=== PATIENT | male | born 1990 | race Caucasian/White ===

== ENCOUNTER 2017-01-14 16:55 | Emergency (ER) | payer SELFPAY ==
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
[~2017-01-14 16:55] MED LIST: PROPRANOLOL; VIBRAMYCIN100 M1 PO; ZOMIG ZMT5 MG/TAB; ZYRTEC
== END 2017-01-14 19:35 | disposition home or self-care (01) ==
LOC: SED 16:55
DX: S16.1XXA Strain of muscle, fascia and tendon at neck level, initial encounter (principal); S39.012A Strain of muscle, fascia and tendon of lower back, initial encounter; V49.20XA Unspecified car occupant injured in collision with unspecified motor vehicles in nontraffic accident, initial encounter
CPT/HCPCS: 72040; 72100; 99284

== ENCOUNTER 2017-02-13 09:25 | Emergency (ER) | payer OTHER ==
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
== END 2017-02-13 10:34 | disposition home or self-care (01) ==
LOC: SED 09:25
DX: S46.811A Strain of other muscles, fascia and tendons at shoulder and upper arm level, right arm, initial encounter (principal); G40.909 Epilepsy, unspecified, not intractable, without status epilepticus; V49.40XA Driver injured in collision with unspecified motor vehicles in traffic accident, initial encounter; Y92.410 Unspecified street and highway as the place of occurrence of the external cause
CPT/HCPCS: 73030; 99283